=== PATIENT | female | born 1980 | race African-American/Black ===

== ENCOUNTER 2016-07-31 13:04 | Emergency (ER) | payer BC ==
[~2016-07-31] VITALS: Ht 172.7 cm; Wt 108.9 kg
[~2016-07-31 13:04] MED LIST: CYCL10TA2 PO; NAPR500T8 PO; SULF1TAB24 PO
[2016-07-31] MEDS ORDERED: oxyCODONE/APAP 10/325 1 TAB TABLET PO ONE (13:45)
--- NOTE | 2016-07-31 14:25 | ED.ADGEN ---
Past Medical History Past Medical History: Anemia, Other Additional Past Medical Histor: UTERUS FIBROIDS Past Surgical History: Alcohol Use: None Drug Use: None Adult General Chief Complaint Chief Complaint: ABDOMINAL PAIN HPI HPI Patient is a 35 year old female who presents with suprapubic pain, cramping, radiating to back. Patient states she has painful irregular menstrual periods uterine fibroids that symptoms are similar to previous painful cramps. Patient states she has not yet started her menstrual period. Last menstrual period was 3 months ago. No nausea vomiting, flank pain, urinary frequency urgency. No vaginal discharge. No other acute symptoms or complaints. Patient is not currently on control. She is previously been eyes to have a hysterectomy, but was waiting insurance coverage until she was able to proceed with the operation. Review of Systems Review of Systems ROS as per HPI. Current Medications Current Medications Current Medications Medications (Trade) Dose Ordered Sig/Anam Start Time Stop Time Status Last Admin Dose Admin Oxycodone/ Acetaminophen (Percocet 10/325) 1 tab 1X ONCE 07/31/16 13:45 07/31/16 13:46 DC 07/31/16 13:56 1 TAB Allergies Allergies Allergies Coded Allergies Type Severity Reaction Last Updated Verified No Known Drug Allergies 05/18/14 No Physical Exam Physical Exam Constitutional: Well developed, well nourished, anxious. HENT: Normocephalic, atraumatic, bilateral external ears normal, oropharynx moist. Eyes: PERRLA, EOMI. Neck: Normal range of motion. Cardiovascular:Heart rate regular rhythm, no murmur. Lungs & Thorax: Bilateral breath sounds clear to auscultation. Abdomen: Bowel sounds normal, soft, suprapubic pain, no tenderness. Skin: Warm, dry. Back: No tenderness, no CVA tenderness. Extremities: No tenderness. Neurologic: Alert and oriented X 3, normal motor function, normal sensory function, no focal deficits noted. Psychologic: Affect normal, judgement normal, mood normal. Current Patient Data Vital Signs Vital Signs Date Time Temp Pulse Resp B/P (MAP) Pulse Ox O2 Delivery O2 Flow Rate FiO2 07/31/16 13:12 98.0 80 15 180/81 (114) 98 Room Air 98.0 EKG EKG [] Radiology/Procedures Radiology/Procedures [] Course & Med Decision Making Course & Med Decision Making Pertinent Labs and Imaging studies reviewed. (See chart for details) [UA, hCG reviewed. Will treat for chronic pelvic with referral to [facility]. Return precautions reviewed.] Dragon Disclaimer Dragon Disclaimer This electronic medical record was generated, in whole or in part, using a voice recognition dictation system. KOMAL RUSHING DO Jul 31, 2016 14:25
[2016-07-31 14:38] LABS: BILIRUBIN,URINE NEGATIVE (NEG); GLUCOSE,URINE NEGATIVE (NEG); NITRITE,URINE NEGATIVE (NEG); PROTEIN,URINE >=300 mg/dL (NEG-TRACE); UROBILINOGEN,URINE 0.2 mg/dL (0.2 mg/dL)
[2016-07-31 14:42] LABS: NEG OBC UR NEG; POS OBC UR POS
[2016-07-31 14:46] LABS: BACTERIA,URINE 0 /HPF (0-FEW); RBC,URINE TNTC /HPF (0-2); WBC,URINE TNTC /HPF (0-4)
[2016-07-31 15:00] VITALS: BP 148/84
== END 2016-07-31 15:24 | disposition home or self-care (01) ==
LOC: ER 13:04
DX: R10.30 Lower abdominal pain, unspecified (principal); Z90.710 Acquired absence of both cervix and uterus
CPT/HCPCS: 81001; 81025; 87086; 99284

== ENCOUNTER 2017-04-12 19:52 | Emergency (ER) | payer SELFPAY, BC ==
[2017-04-12 21:22] LABS: BILIRUBIN,URINE NEGATIVE (NEG); CLARITY,URINE CLEAR; COLOR,URINE YELLOW; GLUCOSE,URINE NEGATIVE (NEG); NITRITE,URINE NEGATIVE (NEG); PROTEIN,URINE NEGATIVE (NEG-TRACE); UROBILINOGEN,URINE 0.2 mg/dL (0.2 mg/dL)
[2017-04-12 21:27] LABS: BACTERIA,URINE FEW /HPF (0-FEW); RBC,URINE RARE /HPF (0-2); SQUAMOUS EPITHELIAL CELL,UR MOD /LPF; WBC,URINE RARE /HPF (0-4)
== END 2017-04-12 22:37 | disposition home or self-care (01) ==
LOC: ER 19:52
DX: R10.2 Pelvic and perineal pain (principal)
CPT/HCPCS: 81001; 99284; Q0111

== ENCOUNTER 2017-08-24 18:39 | Emergency (ER) | payer SELFPAY ==
[2017-08-24 20:27] LABS: ADD MAN DIFF? NO
[2017-08-24 20:29] LABS: BASO # 0.1 x10^3/uL (0.0-0.2); BASO % 1 % (0-3); EOS # 0.1 x10^3/uL (0.0-0.7); EOS % 1 % (0-3); HEMATOCRIT 35.1 % (36.0-47.0); HEMOGLOBIN 11.5 g/dL (12.0-15.5); LYMPH # 2.9 x10^3/uL (1.0-4.8); LYMPH % 35 % (24-48); MEAN CORPUSCULAR HEMOGLOBIN 24 pg (25-35); MEAN CORPUSCULAR HGB CONC 33 g/dL (31-37); MEAN CORPUSCULAR VOLUME 73 fL (79-100); MONO # 0.5 x10^3/uL (0.0-1.1); MONO % 6 % (0-9); NEUT # 4.7 x10^3uL (1.8-7.7); NEUT % 58 % (31-73); PLATELET COUNT 354 x10^3/uL (140-400); RED CELL DISTRIBUTION WIDTH 17.6 % (11.5-14.5); WHITE BLOOD COUNT 8.2 x10^3/uL (4.0-11.0)
[2017-08-24 20:31] LABS: BILIRUBIN,URINE NEGATIVE (NEG); CLARITY,URINE CLEAR; COLOR,URINE YELLOW; GLUCOSE,URINE NEGATIVE (NEG); NITRITE,URINE NEGATIVE (NEG); PROTEIN,URINE NEGATIVE (NEG-TRACE); UROBILINOGEN,URINE 0.2 mg/dL (0.2 mg/dL)
[2017-08-24 20:41] LABS: ANION GAP 9 (6-14); BLOOD UREA NITROGEN 14 mg/dL (7-20); BUN/CREATININE RATIO 20 (6-20); CALCIUM 8.9 mg/dL (8.5-10.1); CARBON DIOXIDE 26 mmol/L (21-32); CHLORIDE 103 mmol/L (98-107); CREATININE 0.7 mg/dL (0.6-1.0); GFR 113.9; GLUCOSE 118 mg/dL (70-99); POTASSIUM 3.8 mmol/L (3.5-5.1); SODIUM 138 mmol/L (136-145)
[2017-08-24 20:46] LABS: ALBUMIN 3.7 g/dL (3.4-5.0); ALBUMIN/GLOBULIN RATIO 0.9 (1.0-1.7); ALK PHOS 77 U/L (46-116); ALT (SGPT) 25 U/L (14-59); AST (SGOT) 15 U/L (15-37); TOTAL BILIRUBIN 0.2 mg/dL (0.2-1.0)
[2017-08-24 20:49] LABS: BACTERIA,URINE FEW /HPF (0-FEW); RBC,URINE 0 /HPF (0-2); SQUAMOUS EPITHELIAL CELL,UR MOD /LPF
== END 2017-08-24 22:50 | disposition home or self-care (01) ==
LOC: ER 18:39
DX: S02.5XXA Fracture of tooth (traumatic), initial encounter for closed fracture (principal); N39.0 Urinary tract infection, site not specified; X58.XXXA Exposure to other specified factors, initial encounter; Y93.89 Activity, other specified; Y92.89 Other specified places as the place of occurrence of the external cause; Y99.8 Other external cause status
CPT/HCPCS: 36415; 80053; 81001; 85025; 99284